=== PATIENT | female | born 1950 | race Caucasian/White ===

== ENCOUNTER → 2016-10-08 | Outpatient (REF) | payer MEDICARE, MEDICAID ==
[2016-10-08 18:34] LABS: BASO % 0.3 % (0.0-1.0); EOS % 0.6 % (0.0-3.0); LARGE UNSTAINED CELL # 0.1 K/mm3 (0.0-0.4); LARGE UNSTAINED CELL % 1.9 % (0.0-4.0); LYMPH # 1.5 K/mm3 (1.5-4.5); LYMPH % 33.6 % (24.0-44.0); MEAN CORPUSCULAR HEMOGLOBIN 29.8 pg (27.0-33.0); MEAN CORPUSCULAR HGB CONC 33.1 g/dl (32.0-36.5); MONO # 0.4 K/mm3 (0.0-0.8); MONO % 8.1 % (0.0-5.0); NEUTROPHILS # 2.4 K/mm3 (1.8-7.7); NEUTROPHILS % 55.4 % (36.0-66.0); PLATELET COUNT, AUTOMATED 156 k/mm3 (150-450); RED CELL DISTRIBUTION WIDTH 11.6 % (11.5-14.5); WHITE BLOOD COUNT 4.3 K/mm3 (4.0-10.0)
[2016-10-08 19:49] LABS: ALBUMIN 3.8 GM/DL (3.2-5.2); ALBUMIN/GLOBULIN RATIO 1.06 (1.00-1.93); ALKALINE PHOSPHATASE 82 U/L (45-117); ALT/SGPT 41 U/L (12-78); ANION GAP 9 MEQ/L (8-16); AST/SGOT 39 U/L (15-37); BILIRUBIN,DIRECT 0.1 MG/DL (0.0-0.2); BILIRUBIN,TOTAL 0.8 MG/DL (0.2-1.0); BLOOD UREA NITROGEN 13 MG/DL (7-18); CARBON DIOXIDE LEVEL 30 MEQ/L (21-32); CHLORIDE LEVEL 102 MEQ/L (98-107); CHOLESTEROL LEVEL 200 MG/DL (<200); GLOMERULAR FILTRATION RATE > 60.0 (>45); GLUCOSE, FASTING 84 MG/DL (80-110); PHOSPHORUS LEVEL 2.5 MG/DL (2.5-4.9); POTASSIUM SERUM 3.8 MEQ/L (3.5-5.1); SODIUM LEVEL 141 MEQ/L (136-145); TOTAL PROTEIN 7.4 GM/DL (6.4-8.2); TRIGLYCERIDES LEVEL 228 MG/DL (<150)
== END ==
LOC: M SFHCLERA 14:17
PROVIDERS: ATTEND Family Medicine
DX: Z51.81 Encounter for therapeutic drug level monitoring (principal); Z13.220 Encounter for screening for lipoid disorders; Z79.82 Long term (current) use of aspirin; Z79.899 Other long term (current) drug therapy; R41.82 Altered mental status, unspecified; R42 Dizziness and giddiness; F43.9 Reaction to severe stress, unspecified; Z23 Encounter for immunization
CPT/HCPCS: 80061; 80069; 80076; 82043; 85025; 86580; 90662; 93005; G0008; G0463; G0472

== ENCOUNTER → 2016-10-09 | Outpatient (CLI) | payer MEDICARE, MEDICAID ==
--- NOTE | 2016-10-09 15:11 | REP ---
CAROTID ULTRASOUND: Real-time ultrasound evaluation and duplex Doppler interrogation of the extracranial carotid vasculature is performed. There is mild plaquing and narrowing in both carotid bulbs extending into the internal and external carotid arteries. Luminal narrowing is less than 50%. There is no evidence of hemodynamically significant stenosis of either internal carotid artery. Normal flow velocities are seen. The vertebral arteries demonstrate normal direction of flow. RIGHT LEFT Peak systolic velocity ICA 63.8 cm/s 56.3 cm/s End diastolic velocity ICA 29.1 cm/s 22 cm/s Peak systolic velocity CCA 73.2 cm/s 96 cm/s Peak systolic velocity ECA 103.6 cm/s 83.4 cm/s ICA/CCA ratio 0.87 0.59 IMPRESSION: Bilateral luminal narrowing of the internal carotid arteries less than 50%. No evidence of hemodynamically significant stenosis. Incidental note is made of subcentimeter nodules in both lobes of the thyroid. Signed by David Tanner MD 10/09/2016 03:03 P
== END ==
LOC: M RAD 13:48
PROVIDERS: ATTEND Family Medicine
DX: R42 Dizziness and giddiness (principal); E04.1 Nontoxic single thyroid nodule

== ENCOUNTER → 2016-11-26 | Outpatient (REF) | payer MEDICARE, MEDICAID | LOC: M LAB REF 16:53 | PROVIDERS: ATTEND Obstetrics & Gynecology | DX: N32.81 Overactive bladder (principal); N39.46 Mixed incontinence ==

== ENCOUNTER → 2017-01-03 | Outpatient (REF) | payer MEDICARE, MEDICAID ==
[2017-01-03 17:34] LABS: MEAN CORPUSCULAR HEMOGLOBIN 32.2 pg (27.0-33.0); MEAN CORPUSCULAR HGB CONC 34.8 g/dl (32.0-36.5); MEAN CORPUSCULAR VOLUME 92.5 fl (80.0-96.0); RED CELL DISTRIBUTION WIDTH 12.6 % (11.5-14.5); WHITE BLOOD COUNT 5.5 K/mm3 (4.0-10.0)
[2017-01-03 17:59] LABS: ALBUMIN 3.7 GM/DL (3.2-5.2); ALBUMIN/GLOBULIN RATIO 1.12 (1.00-1.93); ALKALINE PHOSPHATASE 78 U/L (45-117); ALT/SGPT 19 U/L (12-78); ANION GAP 6 MEQ/L (8-16); AST/SGOT 16 U/L (15-37); BILIRUBIN,TOTAL 0.5 MG/DL (0.2-1.0); BLOOD UREA NITROGEN 15 MG/DL (7-18); CALCIUM LEVEL 9.1 MG/DL (8.8-10.2); CARBON DIOXIDE LEVEL 32 MEQ/L (21-32); CHLORIDE LEVEL 103 MEQ/L (98-107); CHOLESTEROL LEVEL 192 MG/DL (<200); CREATININE FOR GFR 0.77 MG/DL (0.55-1.02); GLOMERULAR FILTRATION RATE > 60.0 (>45); GLUCOSE, FASTING 96 MG/DL (80-110); POTASSIUM SERUM 4.3 MEQ/L (3.5-5.1); SODIUM LEVEL 141 MEQ/L (136-145); TRIGLYCERIDES LEVEL 201 MG/DL (<150)
== END ==
LOC: M SFHCLERA 11:24
PROVIDERS: ATTEND Family Medicine
DX: I10 Essential (primary) hypertension (principal); E78.2 Mixed hyperlipidemia
CPT/HCPCS: 80053; 80061; 85027; G0463

== ENCOUNTER → 2017-01-30 | Outpatient (REF) | payer MEDICARE, MEDICAID | LOC: M LAB REF 16:38 | PROVIDERS: ATTEND Obstetrics & Gynecology | DX: N32.81 Overactive bladder (principal); N39.41 Urge incontinence ==

== ENCOUNTER 2017-05-30 12:32 | Outpatient (CLI) | payer MEDICARE, MEDICAID ==
[~2017-05-30] VITALS: Ht 149.9 cm; Wt 98.9 kg
[~2017-05-30 12:32] MED LIST: ALEV220T26 PO; ASPI1TAB PO; BENA25CA4 PO; DETR4CAP PO; DULE200A IN; GLUC1CAP10 PO; LORA10TA2 PO; LOSA100T36 PO; MYRB25TA PO; OMEG12002 PO; OMEP20CA3 PO; PROAAER10 INH; SIMV10TA2 PO; STEL90IN SC; TURM500T PO; VITA100067 PO; [UNRECOGNIZED DRUG - CODE] EX
[2017-05-30] MEDS ORDERED: NS 1,000 ML IV ONE (13:00)
[2017-05-30] MEDS ORDERED: LIDOCAINE 2% INJ 100 MG/5 ML SDV (FOR ANES.) As Ordered ONE (13:58)
[2017-05-30] MEDS ORDERED: PROPOFOL 200 MG/20 ML VIAL As Ordered ONE ×2 (13:58→14:06)
--- NOTE | 2017-05-30 14:21 | ROOR ---
Patient Name: Nicole Cardona Procedure Date: 05/30/2017 1:56 PM Date of : 1950 Age: 67 Room: [facility] Gender: Female Note Status: Finalized Procedure: Colonoscopy Indications: Screening for colorectal malignant neoplasm Providers: Rich ZULETA MD Referring MD: Denise BARON MD Requesting Provider: Medicines: Monitored Anesthesia Care Complications: No immediate complications. Procedure: Pre-Anesthesia Assessment: - The heart rate, respiratory rate, oxygen saturations, blood pressure, adequacy of pulmonary ventilation, and response to care were monitored throughout the procedure. The Colonoscope was introduced through the anus and advanced to the cecum, identified by appendiceal orifice and ileocecal valve. The colonoscopy was performed without difficulty. The patient tolerated the procedure well. The quality of the bowel preparation was good. Findings: The perianal and digital rectal examinations were normal. A 3 mm polyp was found in the ascending colon. The polyp was sessile. The polyp was removed with a cold snare. Resection and retrieval were complete. Two sessile polyps were found in the descending colon. The polyps were 3 to 4 mm in size. These polyps were removed with a cold snare. Resection and retrieval were complete. Multiple medium-mouthed diverticula were found in the sigmoid colon. The exam was otherwise without abnormality. Impression: - One 3 mm polyp in the ascending colon, removed with a cold snare. Resected and retrieved. - Two 3 to 4 mm polyps in the descending colon, removed with a cold snare. Resected and retrieved. - Moderate diverticulosis in the sigmoid colon. - The examination was otherwise normal. Recommendation: - Telephone endoscopist for pathology results in 2 weeks. - If the pathology report reveals adenomatous tissue, then repeat the colonoscopy for surveillance in 3 years. - If the pathology report indicates hyperplastic polyp, then repeat colonoscopy for screening purposes in 10 years. Rich Zuleta MD Rich ZULETA MD 05/30/2017 2:21:38 PM This report has been signed electronically. Number of Addenda: 0 Note Initiated On: 05/30/2017 1:56 PM Estimated Blood Loss: Estimated blood loss: none.
[2017-05-30 14:46] VITALS: BP 129/69
== END 2017-05-30 15:18 | disposition home or self-care (01) ==
LOC: M OPP 12:32
PROVIDERS: ATTEND Internal Medicine Gastroenterology
DX: Z12.11 Encounter for screening for malignant neoplasm of colon (principal); D12.2 Benign neoplasm of ascending colon; D12.4 Benign neoplasm of descending colon; K57.30 Diverticulosis of large intestine without perforation or abscess without bleeding; I10 Essential (primary) hypertension; E78.5 Hyperlipidemia, unspecified; K21.9 Gastro-esophageal reflux disease without esophagitis; R12 Heartburn; F32.9 Major depressive disorder, single episode, unspecified; F41.9 Anxiety disorder, unspecified; M35.1 Other overlap syndromes; M19.90 Unspecified osteoarthritis, unspecified site; M54.9 Dorsalgia, unspecified; M25.60 Stiffness of unspecified joint, not elsewhere classified; L41.9 Parapsoriasis, unspecified; Z86.73 Personal history of transient ischemic attack (TIA), and cerebral infarction without residual deficits; E55.9 Vitamin D deficiency, unspecified; R32 Unspecified urinary incontinence; Z87.891 Personal history of nicotine dependence; Z88.8 Allergy status to other drugs, medicaments and biological substances; Z88.5 Allergy status to narcotic agent; Z88.3 Allergy status to other anti-infective agents; Z79.82 Long term (current) use of aspirin; Z79.899 Other long term (current) drug therapy

== ENCOUNTER → 2017-07-01 | Outpatient (REF) | payer MEDICARE, MEDICAID | LOC: M SFHCLERA 18:08 | PROVIDERS: ATTEND Physician Assistant | DX: Z11.59 Encounter for screening for other viral diseases (principal) | CPT/HCPCS: 86803; G0463 ==

== ENCOUNTER → 2017-07-04 | Outpatient (REF) | payer MEDICARE, MEDICAID ==
[2017-07-04 12:52] LABS: FOLATE 21.7 NG/ML
[2017-07-04 13:50] LABS: FREE T4 1.05 NG/DL (0.76-1.46)
== END ==
LOC: M SFHCLERA 09:47
PROVIDERS: ATTEND Family Medicine
DX: E66.01 Morbid (severe) obesity due to excess calories (principal); Z68.41 Body mass index [BMI] 40.0-44.9, adult; L40.9 Psoriasis, unspecified; E78.2 Mixed hyperlipidemia; N32.81 Overactive bladder; F32.9 Major depressive disorder, single episode, unspecified; Z23 Encounter for immunization; Z79.82 Long term (current) use of aspirin; Z79.899 Other long term (current) drug therapy
CPT/HCPCS: 82306; 82607; 82746; 84439; 84443; 90732; G0009

== ENCOUNTER → 2017-10-01 | Outpatient (CLI) | payer MEDICARE, MEDICAID ==
[2017-10-01 17:40] LABS: BASO % 0.4 % (0.0-1.0); EOS # 0.1 10^3/uL (0.0-0.50); EOS % 1.3 % (0.0-3.0); HEMATOCRIT 42.7 % (36.0-47.0); HEMOGLOBIN 14.2 g/dl (12.0-16.0); IMMATURE GRANULOCYTE % 0.2 % (0-0); LYMPH % 37.3 % (24.0-44.0); MEAN CORPUSCULAR HEMOGLOBIN 29.6 pg (27.0-33.0); MEAN CORPUSCULAR HGB CONC 33.3 g/dl (32.0-36.5); MEAN CORPUSCULAR VOLUME 89.1 fl (80.0-96.0); MONO # 0.5 10^3/uL (0.0-0.8); MONO % 9.8 % (0.0-5.0); NEUTROPHILS # 2.7 10^3/uL (1.8-7.7); PLATELET COUNT, AUTOMATED 193 10^3/uL (150-450); RED BLOOD COUNT 4.79 10^6/uL (4.00-5.40); WHITE BLOOD COUNT 5.3 10^3/uL (4.0-10.0)
[2017-10-01 17:47] LABS: ALKALINE PHOSPHATASE 87 U/L (45-117); ALT/SGPT 21 U/L (12-78); ANION GAP 9 MEQ/L (8-16); AST/SGOT 16 U/L (7-37); BILIRUBIN,DIRECT 0.1 MG/DL (0.0-0.2); BILIRUBIN,TOTAL 0.7 MG/DL (0.2-1.0); BLOOD UREA NITROGEN 22 MG/DL (7-18); CALCIUM LEVEL 9.7 MG/DL (8.8-10.2); CARBON DIOXIDE LEVEL 32 MEQ/L (21-32); CHLORIDE LEVEL 98 MEQ/L (98-107); CREATININE FOR GFR 0.84 MG/DL (0.55-1.02); GLOMERULAR FILTRATION RATE > 60.0 (>45); GLUCOSE, FASTING 96 MG/DL (70-100); PHOSPHORUS LEVEL 3.2 MG/DL (2.5-4.9); POTASSIUM SERUM 3.4 MEQ/L (3.5-5.1); SODIUM LEVEL 139 MEQ/L (136-145)
== END ==
LOC: M LRY 13:04
DX: Z51.81 Encounter for therapeutic drug level monitoring (principal); Z79.899 Other long term (current) drug therapy; L40.0 Psoriasis vulgaris
CPT/HCPCS: 80069

== ENCOUNTER → 2017-10-25 | Outpatient (CLI) | payer MEDICARE, MEDICAID ==
[2017-10-27 10:07] LABS: QUANTIFERON GOLD TB Negative (Negative); TB Test (QFT) Antigen 0.02 IU/mL (.); TB Test (QFT) Mitogen 5.89 IU/mL (.); TB Test (QFT) Nil 0.02 IU/mL (.)
== END ==
LOC: M LRY 12:42
DX: Z51.81 Encounter for therapeutic drug level monitoring (principal); L40.0 Psoriasis vulgaris; Z79.899 Other long term (current) drug therapy
CPT/HCPCS: 36415

== ENCOUNTER → 2018-07-03 | Outpatient (CLI) | payer MEDICARE, MEDICAID | LOC: M LRY 12:03 | DX: L40.9 Psoriasis, unspecified (principal); M25.761 Osteophyte, right knee; M25.762 Osteophyte, left knee; M17.0 Bilateral primary osteoarthritis of knee | CPT/HCPCS: 73565; 90682 ==

== ENCOUNTER → 2018-10-01 | Outpatient (CLI) | payer MEDICARE, MEDICAID ==
[~2018-10-01] MED LIST changes: +LORA-243 PO; -LORA10TA2 PO; -LOSA100T36 PO; +LOSA100T50 PO
--- NOTE | 2018-10-01 14:52 | REP ---
Chest two views HISTORY: Psoriasis medication monitoring Comparison: 10/01/2017 The lungs are clear. The heart is normal in size. The pulmonary vasculature is normal in appearance. The bony structure is intact. IMPRESSION: No acute disease. Electronically Signed by Eleazar Weinberg MD 10/01/2018 02:44 P
== END ==
LOC: M LRY 13:56
PROVIDERS: ATTEND Nurse Practitioner Family
DX: L40.0 Psoriasis vulgaris (principal); Z51.81 Encounter for therapeutic drug level monitoring; Z79.899 Other long term (current) drug therapy

== ENCOUNTER → 2018-11-26 | Outpatient (REF) | payer MEDICARE, MEDICAID ==
[~2018-11-26] MED LIST changes: -ASPI1TAB PO; +ASPI81TA26 PO
[2018-11-26 13:25] LABS: C REACTIVE PROTEIN QUANTITATIV 1.23 MG/DL (0.00-0.30); RHEUMATOID FACTOR QUANT < 10.0 IU/ML (<15.0)
== END ==
LOC: M SFHCPLAZ 10:21
PROVIDERS: ATTEND Internal Medicine Rheumatology
DX: M25.569 Pain in unspecified knee (principal)
CPT/HCPCS: 36415; 85652; 86140; 86200; 86431; G0463

== ENCOUNTER → 2019-01-02 | Outpatient (REF) | payer MEDICARE, MEDICAID ==
[2019-01-02 12:08] LABS: ALBUMIN 3.8 GM/DL (3.2-5.2); ALT/SGPT 19 U/L (12-78); BILIRUBIN,TOTAL 0.3 MG/DL (0.2-1.0); BLOOD UREA NITROGEN 19 MG/DL (7-18); CARBON DIOXIDE LEVEL 32 MEQ/L (21-32); CHLORIDE LEVEL 99 MEQ/L (98-107); CHOLESTEROL LEVEL 210 MG/DL (<200); CHOLESTEROL RISK RATIO 4.883 (<5); CREATININE FOR GFR 0.75 MG/DL (0.55-1.30); GLOMERULAR FILTRATION RATE > 60.0 (>45); GLUCOSE, FASTING 97 MG/DL (70-100); HDL CHOLESTEROL 43 MG/DL (>40); LDL CHOLESTEROL 97.4 MG/DL (<100); NON-HDL-C 167 MG/DL; POTASSIUM SERUM 3.7 MEQ/L (3.5-5.1); SODIUM LEVEL 138 MEQ/L (136-145); TOTAL PROTEIN 7.1 GM/DL (6.4-8.2); TRIGLYCERIDES LEVEL 348 MG/DL (<150)
== END ==
LOC: M SFHCLERA 09:11
PROVIDERS: ATTEND Family Medicine
DX: Z00.00 Encounter for general adult medical examination without abnormal findings (principal); E78.2 Mixed hyperlipidemia

== ENCOUNTER → 2019-06-22 | Outpatient (REF) | payer MEDICARE, MEDICAID ==
[~2019-06-22] MED LIST changes: -OMEP20CA3 PO; +OMEP20CA4 PO
[2019-06-22 12:35] LABS: CHOLESTEROL RISK RATIO 4.428 (<5)
== END ==
LOC: M SFHCLERA 09:26
PROVIDERS: ATTEND Family Medicine
DX: E78.5 Hyperlipidemia, unspecified (principal)

== ENCOUNTER → 2019-06-22 | Outpatient (CLI) | payer MEDICARE, MEDICAID ==
[2019-06-22 12:17] LABS: BASO % 0.3 % (0.0-1.0); HEMATOCRIT 41.6 % (36.0-47.0); LYMPH # 1.7 10^3/uL (1.5-5.0); LYMPH % 42.1 % (24.0-44.0); MEAN CORPUSCULAR HEMOGLOBIN 30.3 pg (27.0-33.0); MEAN CORPUSCULAR HGB CONC 33.7 g/dl (32.0-36.5); MONO # 0.5 10^3/uL (0.0-0.8); MONO % 13.3 % (0.0-5.0); NEUTROPHILS # 1.7 10^3/uL (1.5-8.5); NEUTROPHILS % 42.8 % (36.0-66.0); PLATELET COUNT, AUTOMATED 153 10^3/uL (150-450); RED BLOOD COUNT 4.62 10^6/uL (4.00-5.40)
[2019-06-22 13:44] LABS: ALBUMIN 3.7 GM/DL (3.2-5.2); ALT/SGPT 26 U/L (12-78); BILIRUBIN,DIRECT 0.1 MG/DL (0.0-0.2); BILIRUBIN,TOTAL 0.7 MG/DL (0.2-1.0); BLOOD UREA NITROGEN 16 MG/DL (7-18); CALCIUM LEVEL 9.8 MG/DL (8.8-10.2); CARBON DIOXIDE LEVEL 32 MEQ/L (21-32); CHLORIDE LEVEL 97 MEQ/L (98-107); CREATININE FOR GFR 0.91 MG/DL (0.55-1.30); GLOMERULAR FILTRATION RATE > 60.0 (>45); GLUCOSE, FASTING 102 MG/DL (70-100); PHOSPHORUS LEVEL 2.8 MG/DL (2.5-4.9); POTASSIUM SERUM 2.9 MEQ/L (3.5-5.1); SODIUM LEVEL 136 MEQ/L (136-145); TOTAL PROTEIN 7.4 GM/DL (6.4-8.2)
--- NOTE | 2019-06-22 14:24 | REP ---
CHEST X-RAY: Two views. HISTORY: Monitoring medication for psoriasis. Comparison chest x-ray October 01, 2018. FINDINGS: The lungs are well inflated and clear. The pleural angles are sharp. Heart size is normal. The thoracic aorta is slightly calcific and tortuous as before. Pulmonary vasculature is not increased. No significant bony abnormality. IMPRESSION: No active disease. Electronically Signed by Valdez Lares MD 06/22/2019 06:34 P
== END ==
LOC: M LRY 09:37
PROVIDERS: ATTEND Nurse Practitioner Family
DX: L40.0 Psoriasis vulgaris (principal); Z79.899 Other long term (current) drug therapy; Z51.81 Encounter for therapeutic drug level monitoring; E78.5 Hyperlipidemia, unspecified

== ENCOUNTER → 2019-06-23 | Outpatient (REF) | payer MEDICARE, MEDICAID | LOC: M SFHCLERA 10:26 | PROVIDERS: ATTEND Family Medicine | DX: I10 Essential (primary) hypertension (principal) ==

== ENCOUNTER → 2019-06-25 | Outpatient (REF) | payer MEDICARE, MEDICAID | LOC: M SFHCLERA 16:20 | PROVIDERS: ATTEND Family Medicine | DX: I10 Essential (primary) hypertension (principal); Z23 Encounter for immunization | CPT/HCPCS: 10120; 84132; 90682; 90732; G0009; G0463 ==

== ENCOUNTER → 2019-07-02 | Outpatient (REF) | payer MEDICARE, MEDICAID | LOC: M SFHCLERA 10:59 | PROVIDERS: ATTEND Family Medicine | DX: E87.6 Hypokalemia (principal); L08.9 Local infection of the skin and subcutaneous tissue, unspecified | CPT/HCPCS: 84132; 84133; 87070; 87077; 87101; 87186; G0463 ==

== ENCOUNTER → 2021-01-11 | Outpatient (CLI) | payer MEDICARE, MEDICAID ==
[~2021-01-11] MED LIST changes: +OMEP1CAP73 PO; -OMEP20CA4 PO; -SIMV10TA2 PO; +SIMV10TA21 PO
[2021-01-11 16:58] LABS: ALBUMIN 3.7 GM/DL (3.2-5.2); ALT/SGPT 20 U/L (12-78); BILIRUBIN,TOTAL 0.5 MG/DL (0.2-1.0); BLOOD UREA NITROGEN 16 MG/DL (7-18); CALCIUM LEVEL 9.2 MG/DL (8.8-10.2); CARBON DIOXIDE LEVEL 29 MEQ/L (21-32); CHLORIDE LEVEL 105 MEQ/L (98-107); CHOLESTEROL LEVEL 196 MG/DL (<200); CREATININE FOR GFR 0.82 MG/DL (0.55-1.30); GLOMERULAR FILTRATION RATE > 60.0 (>39); GLUCOSE, FASTING 94 MG/DL (70-100); HDL CHOLESTEROL 50 MG/DL (>40); LDL CHOLESTEROL 104 MG/DL (<100); NON-HDL-C 146 MG/DL; POTASSIUM SERUM 4.2 MEQ/L (3.5-5.1); SODIUM LEVEL 138 MEQ/L (136-145); TOTAL PROTEIN 7.1 GM/DL (6.4-8.2); TRIGLYCERIDES LEVEL 210 MG/DL (<150)
== END ==
LOC: M WUC 10:44
PROVIDERS: ATTEND Family Medicine
DX: E78.2 Mixed hyperlipidemia (principal); I10 Essential (primary) hypertension; L40.0 Psoriasis vulgaris; Z51.81 Encounter for therapeutic drug level monitoring; Z79.899 Other long term (current) drug therapy

== ENCOUNTER → 2021-01-11 | Outpatient (CLI) | payer MEDICARE, MEDICAID ==
--- NOTE | 2021-01-11 11:46 | REP ---
INDICATION: FOLLOW UP COMPARISON: 06/22/2019. TECHNIQUE: PA/Lateral FINDINGS: Lungs: Clear, no infiltrate. Heart: Normal in size. Mediastinum: There is mild calcification of the thoracic aorta. The mediastinal silhouette is unchanged. Pleural angles: Unremarkable.. Bones and soft tissues: There are degenerative changes of the spine without compression deformity. IMPRESSION: No acute pulmonary disease. <Electronically signed by David Tanner > 01/11/21 [id number]
== END ==
LOC: M WUC 10:52
PROVIDERS: ATTEND Nurse Practitioner Family
DX: L40.0 Psoriasis vulgaris (principal); Z51.81 Encounter for therapeutic drug level monitoring; Z79.899 Other long term (current) drug therapy

== ENCOUNTER → 2021-01-25 | Outpatient (CLI) | payer MEDICARE, MEDICAID ==
--- NOTE | 2021-01-25 11:23 | REPMRS ---
Patient History The patient states she had a clinical breast exam in January 2021. No known family history of cancer. Benign radio exam breast specimen of the left breast, August 30, 2015. Benign stereotatic loc for ea lesion of the left breast, August 30, 2015. Benign cyst aspiration of the left breast, May 17, 2010. Benign excisional biopsy of the right breast, November 05, 2002. Tomosynthesis is performed. Volpara breast density is b . Tyrer-Cuzick lifetime risk of breast cancer 4.1%. No breast complaints today Patient signed the MRS sheet 1st covid vaccine 11/11/20-left arm-Moderna 2nd covid vaccine 12/13/20-left arm Priors on PACS Patient Identification Verified Digital Woman Screen Mammo: January 25, 2021 - Exam #: [id number] Bilateral CC and MLO view(s) were taken. Technologist: Alexandria Giles Technologist Prior study comparison: May 21, 2016, left breast digital mammo diagnostic unilateral, performed at [facility]. December 06, 2015, digital woman screen mammo performed at [facility]. FINDINGS: The breast tissue is heterogeneously dense. This may lower the sensitivity of mammography. There has been no change in the appearance of the mammogram from the prior studies. There is a moderate amount of residual fibroglandular tissue which is fairly symmetric. There is no interval development of dominant mass, areas of architectural distortion, or clustered microcalcification typical of malignancy. Assessment: BI-RADS/ACR category 1 mammogram. Negative Mammogram. Recommendation Routine screening mammogram in 1 year (for women over age 40). This mammogram was interpreted with the aid of an FDA-approved computer-aided dectection system. Electronically Signed By: David Tanner MD 01/25/21 112
== END ==
LOC: M WHC 09:46
PROVIDERS: ATTEND Family Medicine
DX: Z12.31 Encounter for screening mammogram for malignant neoplasm of breast (principal)

== ENCOUNTER 2021-04-25 12:11 | Emergency (ER) | payer MEDICARE, MEDICAID ==
[~2021-04-25] VITALS: Ht 147.3 cm; Wt 93.6 kg
[2021-04-25 12:11] VITALS: BP 136/63
--- NOTE | 2021-04-25 13:33 | REP ---
INDICATION: injury, include left pinky finger COMPARISON: None. TECHNIQUE: Four views left hand. 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 There is moderate narrowing between the scaphoid and trapezium. There is severe narrowing between the trapezium and base of 1st metacarpal with associated spurring, subchondral sclerosis and cystic change. There is moderate diffuse narrowing of the 2nd through 5th distal interphalangeal joints, as well as 3rd and 4th proximal interphalangeal joints, with mild associated spurring. IMPRESSION: No fracture or dislocation. Degenerative changes as above. <Electronically signed by David Tanner > 04/25/21 [id number]
== END 2021-04-25 14:39 | disposition home or self-care (01) ==
LOC: M ED 12:11
DX: S63.637A Sprain of interphalangeal joint of left little finger, initial encounter (principal); X50.3XXA Overexertion from repetitive movements, initial encounter; Y92.9 Unspecified place or not applicable; Y93.H2 Activity, gardening and landscaping; Y99.9 Unspecified external cause status; E78.5 Hyperlipidemia, unspecified; I10 Essential (primary) hypertension; Z79.51 Long term (current) use of inhaled steroids; Z79.82 Long term (current) use of aspirin; Z79.899 Other long term (current) drug therapy; Z87.891 Personal history of nicotine dependence; Z88.6 Allergy status to analgesic agent; Z88.8 Allergy status to other drugs, medicaments and biological substances

== ENCOUNTER → 2021-06-26 | Outpatient (CLI) | payer MEDICARE, MEDICAID ==
[~2021-06-26] MED LIST changes: +BREO1INH3 INH; +COSE1INJ SC; +D31000TA2 PO; +NAPR220C14 PO; +TURM500C3 PO
== END ==
LOC: M LABSMTC 11:27
PROVIDERS: ATTEND Anesthesiology
DX: Z01.812 Encounter for preprocedural laboratory examination (principal); Z20.822 Contact with and (suspected) exposure to COVID-19

== ENCOUNTER → 2022-02-07 | Outpatient (CLI) | payer OTHER, MEDICAID ==
[~2022-02-07] MED LIST changes: -D31000TA2 PO; +LOSA100T45 PO; -LOSA100T50 PO; +VITA100093 PO
== END ==
LOC: M PLAIMG 13:47
PROVIDERS: ATTEND Physician Assistant
DX: J32.8 Other chronic sinusitis (principal); J30.89 Other allergic rhinitis

== ENCOUNTER → 2022-02-07 | Outpatient (CLI) | payer OTHER, MEDICAID ==
[2022-02-07 15:38] LABS: BASO % 0.2 % (0.0-1.0); EOS % 0.4 % (0.0-3.0); HEMOGLOBIN 13.3 g/dl (12.0-15.5); LYMPH # 1.3 10^3/uL (1.5-5.0); LYMPH % 28.2 % (24.0-44.0); MEAN CORPUSCULAR HGB CONC 32.4 g/dl (32.0-36.5); MEAN CORPUSCULAR VOLUME 89.5 fl (80.0-96.0); MONO # 0.9 10^3/uL (0.0-0.8); MONO % 19.7 % (2.0-8.0); NEUTROPHILS # 2.4 10^3/uL (1.5-8.5); NEUTROPHILS % 50.2 % (36.0-66.0); PLATELET COUNT, AUTOMATED 104 10^3/uL (150-450); RED BLOOD COUNT 4.58 10^6/uL (4.00-5.40); WHITE BLOOD COUNT 4.7 10^3/uL (4.0-10.0)
[2022-02-07 16:11] LABS: ALBUMIN 3.9 GM/DL (3.2-5.2); ALT/SGPT 29 U/L (12-78); BILIRUBIN,TOTAL 0.5 MG/DL (0.2-1.0); BLOOD UREA NITROGEN 21 MG/DL (7-18); CALCIUM LEVEL 9.9 MG/DL (8.8-10.2); CARBON DIOXIDE LEVEL 32 MEQ/L (21-32); CHLORIDE LEVEL 107 MEQ/L (98-107); GLOMERULAR FILTRATION RATE > 60.0 (>39); GLUCOSE, FASTING 88 MG/DL (70-100); SODIUM LEVEL 144 MEQ/L (136-145); THYROID STIMULATING HORMONE 0.739 uIU/ML (0.358-3.740); TOTAL PROTEIN 7.4 GM/DL (6.4-8.2)
[2022-02-07 16:12] LABS: TOTAL 25(OH) VITAMIN D 36.3 NG/ML (30.0-100.0); VITAMIN B12 LEVEL 570 PG/ML (247-911)
== END ==
LOC: M PLAIMG 13:51
PROVIDERS: ATTEND Family Medicine
DX: R05.3 Chronic cough (principal); R53.83 Other fatigue; Z79.899 Other long term (current) drug therapy

== ENCOUNTER → 2022-04-12 | Outpatient (CLI) | payer OTHER, MEDICAID ==
[2022-04-12 11:20] LABS: BASO % 0.5 % (0.0-1.0); EOS # 0.1 10^3/uL (0.0-0.5); EOS % 1.6 % (0.0-3.0); HEMOGLOBIN 13.1 g/dl (12.0-15.5); LYMPH # 1.6 10^3/uL (1.5-5.0); LYMPH % 42.9 % (24.0-44.0); MEAN CORPUSCULAR HEMOGLOBIN 28.5 pg (27.0-33.0); MEAN CORPUSCULAR VOLUME 89.1 fl (80.0-96.0); MONO # 0.6 10^3/uL (0.0-0.8); MONO % 15.8 % (2.0-8.0); NEUTROPHILS # 1.4 10^3/uL (1.5-8.5); NEUTROPHILS % 38.7 % (36.0-66.0); PLATELET COUNT, AUTOMATED 112 10^3/uL (150-450); WHITE BLOOD COUNT 3.7 10^3/uL (4.0-10.0)
[2022-04-12 12:08] LABS: ALBUMIN 3.7 GM/DL (3.2-5.2); ALT/SGPT 18 U/L (12-78); BILIRUBIN,TOTAL 0.4 MG/DL (0.2-1.0); BLOOD UREA NITROGEN 19 MG/DL (7-18); CALCIUM LEVEL 9.4 MG/DL (8.8-10.2); CARBON DIOXIDE LEVEL 29 MEQ/L (21-32); CHLORIDE LEVEL 105 MEQ/L (98-107); CREATININE FOR GFR 0.83 MG/DL (0.55-1.30); GLOMERULAR FILTRATION RATE > 60.0 (>39); GLUCOSE, FASTING 104 MG/DL (70-100); POTASSIUM SERUM 4.3 MEQ/L (3.5-5.1); SODIUM LEVEL 139 MEQ/L (136-145); TOTAL PROTEIN 7.5 GM/DL (6.4-8.2)
[2022-04-12 13:16] LABS: HEPATITIS C VIRUS ABY INDEX < 0.0 INDEX (<0.8)
[2022-04-12 13:18] LABS: HIV 1&2 SCREEN CENTAUR NEGATIVE (NEGATIVE)
[2022-04-15 16:12] LABS: HBV HBV DNA not detected IU/mL (.)
== END ==
LOC: M PLALAB 08:36
PROVIDERS: ATTEND Nurse Practitioner Family
DX: L40.0 Psoriasis vulgaris (principal); D69.6 Thrombocytopenia, unspecified

== ENCOUNTER → 2022-04-12 | Outpatient (CLI) | payer OTHER, MEDICAID ==
[2022-04-12 11:22] LABS: BASO % 0.3 % (0.0-1.0); EOS # 0.1 10^3/uL (0.0-0.5); EOS % 1.9 % (0.0-3.0); HEMATOCRIT 40.1 % (36.0-47.0); HEMOGLOBIN 12.9 g/dl (12.0-15.5); LYMPH # 1.6 10^3/uL (1.5-5.0); LYMPH % 43.2 % (24.0-44.0); MEAN CORPUSCULAR HGB CONC 32.2 g/dl (32.0-36.5); MEAN CORPUSCULAR VOLUME 90.1 fl (80.0-96.0); MONO # 0.6 10^3/uL (0.0-0.8); MONO % 15.5 % (2.0-8.0); NEUTROPHILS # 1.5 10^3/uL (1.5-8.5); NEUTROPHILS % 38.6 % (36.0-66.0); PLATELET COUNT, AUTOMATED 112 10^3/uL (150-450); RED BLOOD COUNT 4.45 10^6/uL (4.00-5.40); WHITE BLOOD COUNT 3.8 10^3/uL (4.0-10.0)
== END ==
LOC: M PLALAB 08:39
PROVIDERS: ATTEND Family Medicine
DX: D69.6 Thrombocytopenia, unspecified (principal)

== ENCOUNTER → 2022-05-11 | Outpatient (CLI) | payer OTHER, MEDICAID ==
[~2022-05-11] MED LIST changes: -DULE200A IN; +MOME13HF7 IN
== END ==
LOC: M WHC 07:53
PROVIDERS: ATTEND Family Medicine
DX: Z12.31 Encounter for screening mammogram for malignant neoplasm of breast (principal)

== ENCOUNTER → 2022-05-11 | Outpatient (CLI) | payer OTHER, MEDICAID ==
[2022-05-11 10:38] LABS: HEMATOCRIT 42.6 % (36.0-47.0); HEMOGLOBIN 13.6 g/dl (12.0-15.5); MEAN CORPUSCULAR HEMOGLOBIN 28.8 pg (27.0-33.0); MEAN CORPUSCULAR HGB CONC 31.9 g/dl (32.0-36.5); MEAN CORPUSCULAR VOLUME 90.1 fl (80.0-96.0); PLATELET COUNT, AUTOMATED 118 10^3/uL (150-450); RED BLOOD COUNT 4.73 10^6/uL (4.00-5.40)
[2022-05-11 10:50] LABS: INR 0.94
[2022-05-11 12:34] LABS: ERYTHROCYTE SEDIMENTATION RATE 23 mm/hr (0-30)
== END ==
LOC: M PLALAB 08:48
PROVIDERS: ATTEND Family Medicine
DX: D69.6 Thrombocytopenia, unspecified (principal); D72.829 Elevated white blood cell count, unspecified

== ENCOUNTER → 2022-06-21 | Outpatient (CLI) | payer OTHER, MEDICAID ==
[~2022-06-21] MED LIST changes: +ALBU8.5H INH; +CITA20TA6 PO; +HYDR-643 PO; +TALT80IN7 SC; +TURM500C PO
== END ==
LOC: M LABSMTC 11:32
PROVIDERS: ATTEND Anesthesiology
DX: Z01.812 Encounter for preprocedural laboratory examination (principal); Z20.822 Contact with and (suspected) exposure to COVID-19

== ENCOUNTER 2022-06-26 07:08 | Day surgery (SDC) | payer OTHER, MEDICAID ==
[~2022-06-26] VITALS: Ht 152.4 cm; Wt 96.6 kg
[~2022-06-26 07:08] MED LIST changes: +NS 1,000 ML IV ONE
[2022-06-26] MEDS ORDERED: propofoL 200 MG/20 ML VIAL As Ordered ONE (07:50)
[2022-06-26] MEDS ORDERED: LIDOCAINE 2% 100MG/5ML SDV (FOR ANES.) As Ordered ONE (07:50)
[2022-06-26] MEDS ORDERED: fentaNYL 100 MCG/2 ML INJECTION As Ordered ONE (08:39)
[2022-06-26 09:40] VITALS: BP 129/59
== END 2022-06-26 09:52 | disposition home or self-care (01) ==
LOC: M OPP 07:08
PROVIDERS: ATTEND Surgery
DX: Z12.11 Encounter for screening for malignant neoplasm of colon (principal); Z86.010 Personal history of colon polyps; K57.30 Diverticulosis of large intestine without perforation or abscess without bleeding; K64.1 Second degree hemorrhoids; K22.89 Other specified disease of esophagus; K31.7 Polyp of stomach and duodenum; K29.70 Gastritis, unspecified, without bleeding; K30 Functional dyspepsia; Z87.891 Personal history of nicotine dependence; F32.9 Major depressive disorder, single episode, unspecified; F41.9 Anxiety disorder, unspecified; I10 Essential (primary) hypertension; E78.00 Pure hypercholesterolemia, unspecified; M05.79 Rheumatoid arthritis with rheumatoid factor of multiple sites without organ or systems involvement; R20.2 Paresthesia of skin; J44.9 Chronic obstructive pulmonary disease, unspecified; Z79.02 Long term (current) use of antithrombotics/antiplatelets; Z79.51 Long term (current) use of inhaled steroids; Z79.82 Long term (current) use of aspirin; Z79.1 Long term (current) use of non-steroidal anti-inflammatories (NSAID); Z79.899 Other long term (current) drug therapy; Z79.52 Long term (current) use of systemic steroids; Z88.3 Allergy status to other anti-infective agents; Z88.5 Allergy status to narcotic agent; Z88.6 Allergy status to analgesic agent; Z88.8 Allergy status to other drugs, medicaments and biological substances
CPT/HCPCS: 43239; 88305; G0105; J3010

== ENCOUNTER → 2022-07-24 | Outpatient (CLI) | payer MEDICARE, MEDICAID ==
[~2022-07-24] MED LIST changes: +LIDOCAINE 1% MDV 20ML VIAL As Ordered ONE; -NS 1,000 ML IV ONE
[2022-07-24 08:31] LABS: BASO % 0.2 % (0.0-1.0); EOS % 0.4 % (0.0-3.0); HEMATOCRIT 40.2 % (36.0-47.0); HEMOGLOBIN 13.1 g/dl (12.0-15.5); LYMPH # 1.5 10^3/uL (1.5-5.0); LYMPH % 31.8 % (24.0-44.0); MEAN CORPUSCULAR HEMOGLOBIN 28.7 pg (27.0-33.0); MEAN CORPUSCULAR HGB CONC 32.6 g/dl (32.0-36.5); MEAN CORPUSCULAR VOLUME 88.2 fl (80.0-96.0); MONO # 0.7 10^3/uL (0.0-0.8); MONO % 15.4 % (2.0-8.0); NEUTROPHILS # 2.4 10^3/uL (1.5-8.5); NEUTROPHILS % 51.5 % (36.0-66.0); PLATELET COUNT, AUTOMATED 107 10^3/uL (150-450); RED BLOOD COUNT 4.56 10^6/uL (4.00-5.40); WHITE BLOOD COUNT 4.6 10^3/uL (4.0-10.0)
[2022-07-24 09:05] VITALS: BP 122/57
== END ==
LOC: M IRPRO 07:08
PROVIDERS: ATTEND Internal Medicine Medical Oncology
DX: D69.6 Thrombocytopenia, unspecified (principal); D72.819 Decreased white blood cell count, unspecified

== ENCOUNTER → 2022-08-15 | Outpatient (CLI) | payer MEDICARE, MEDICAID ==
[~2022-08-15] MED LIST changes: -LIDOCAINE 1% MDV 20ML VIAL As Ordered ONE
== END ==
LOC: M RAD 09:10
PROVIDERS: ATTEND Internal Medicine Hematology & Oncology
DX: D69.6 Thrombocytopenia, unspecified (principal)

== ENCOUNTER → 2022-09-12 | Outpatient (REF) | payer OTHER, MEDICAID ==
[~2022-09-12] MED LIST changes: +CIPR500S PO
[2022-09-12 19:51] LABS: APPEARANCE, URINE MANUAL CLEAR (CLEAR); COLOR, URINE MANUAL YELLOW (YELLOW)
[2022-09-12 19:53] LABS: BILIRUBIN, URINE MANUAL NEGATIVE (NEGATIVE); BLOOD URINE MANUAL POSITIVE (NEGATIVE); GLUCOSE, URINE (UA) MANUAL NEGATIVE (NEGATIVE); KETONE, URINE MANUAL NEGATIVE (NEGATIVE); LEUKOCYTE ESTERASE, URINE MAN POSITIVE (NEGATIVE); NITRITE, URINE MANUAL POSITIVE (NEGATIVE); PROTEIN, URINE MANUAL NEGATIVE (NEGATIVE); UROBILINOGEN, URINE MANUAL NORMAL (NORMAL)
[2022-09-12 21:01] LABS: WBC, URINE 20-30 /hpf (0-3)
[2022-09-12 21:02] LABS: BACTERIA, URINE LARGE AMOUNT; HYALINE CAST, URINE NONE SEEN /lpf (0-1); SQUAMOUS EPITHELIAL CELL URINE MOD AMOUNT /hpf (SMALL AMT)
== END ==
LOC: M SMT 17:09
PROVIDERS: ATTEND Nurse Practitioner Women's Health
DX: R32 Unspecified urinary incontinence (principal)

== ENCOUNTER → 2022-11-23 | Outpatient (CLI) | payer OTHER, MEDICAID ==
[~2022-11-23] MED LIST changes: +CITA40TA7 PO; +COQ-100C5 PO; +CURC500C PO; +LEVOTAB10 PO; +LEXA1TAB PO; +MYRB50TA PO; +OMEGCAP4 PO; +RISA150P SC; +SPIR-10 PO; +TOLT4CAP3 PO; +ZINC50TA17 PO
[2022-11-23 15:50] LABS: HEMATOCRIT 42.2 % (36.0-47.0); HEMOGLOBIN 13.9 g/dl (12.0-15.5); MEAN CORPUSCULAR HEMOGLOBIN 29.2 pg (27.0-33.0); MEAN CORPUSCULAR HGB CONC 32.9 g/dl (32.0-36.5); MEAN CORPUSCULAR VOLUME 88.7 fl (80.0-96.0); PLATELET COUNT, AUTOMATED 121 10^3/uL (150-450); RED BLOOD COUNT 4.76 10^6/uL (4.00-5.40); WHITE BLOOD COUNT 3.8 10^3/uL (4.0-10.0)
[2022-11-23 16:10] LABS: PROTHROMBIN TIME 13.4 SECONDS (12.5-14.5)
[2022-11-23 16:53] LABS: ALBUMIN 4.1 G/DL (3.2-5.2); ALKALINE PHOSPHATASE 86 U/L (46-116); ALT/SGPT 18 U/L (7.0-40); AST/SGOT 20 U/L (<34); BILIRUBIN,TOTAL 0.5 MG/DL (0.3-1.2); BLOOD UREA NITROGEN 20 MG/DL (9-23); CALCIUM LEVEL 9.7 MG/DL (8.3-10.6); CARBON DIOXIDE LEVEL 29 MMOL/L (20-31); CHLORIDE LEVEL 102 MMOL/L (98-107); GLOMERULAR FILTRATION RATE > 60.0 (>39); GLUCOSE, FASTING 94 MG/DL (74-106); POTASSIUM SERUM 4.5 MMOL/L (3.5-5.1); SODIUM LEVEL 139 MMOL/L (136-145)
[2022-11-23 18:39] LABS: TOTAL PROTEIN 7.2 G/DL (5.7-8.2)
== END ==
LOC: M PLALAB 13:43
PROVIDERS: ATTEND Urology
DX: R32 Unspecified urinary incontinence (principal)

== ENCOUNTER → 2022-11-23 | Outpatient (CLI) | payer OTHER, MEDICAID | LOC: M EKG 14:16 | PROVIDERS: ATTEND Urology | DX: R32 Unspecified urinary incontinence (principal) ==

== ENCOUNTER → 2022-11-28 | Outpatient (CLI) | payer OTHER, MEDICAID | LOC: M LABSMTC 11:28 | PROVIDERS: ATTEND Anesthesiology | DX: Z20.822 Contact with and (suspected) exposure to COVID-19 (principal) ==

== ENCOUNTER 2022-12-03 06:50 | Day surgery (SDC) | payer OTHER, MEDICAID ==
[~2022-12-03] VITALS: Ht 149.9 cm; Wt 102.5 kg
[2022-12-03] MEDS ORDERED: LIDOCAINE 1% SDV 30ML VIAL As Ordered ONE (08:13)
[2022-12-03] MEDS ORDERED: LR 1,000 ML IV SCH (08:15)
[2022-12-03] MEDS ORDERED: ceFAZolin 2 GM/D5W 50 ML IV BAG As Ordered ONE (08:32)
[2022-12-03] MEDS ORDERED: MIDAZOLAM INJ 2MG/2ML VIAL As Ordered ONE (08:41)
[2022-12-03] MEDS ORDERED: propofoL 200 MG/20 ML VIAL As Ordered ONE (08:41)
[2022-12-03] MEDS ORDERED: ACETAMINOPHEN 1000MG 100ML IV BAG As Ordered ONE (08:41)
[2022-12-03] MEDS ORDERED: fentaNYL 100 MCG/2 ML INJECTION As Ordered ONE (08:41)
[2022-12-03] MEDS ORDERED: LIDOCAINE 2% 100MG/5ML SDV (FOR ANES.) As Ordered ONE (08:41)
[2022-12-03] MEDS ORDERED: CEPH500C PO (08:58)
[2022-12-03 10:00] VITALS: BP 167/78
== END 2022-12-03 10:00 | disposition home or self-care (01) ==
LOC: M SDC 06:50
PROVIDERS: ATTEND Urology
DX: N32.81 Overactive bladder (principal); L40.9 Psoriasis, unspecified; I10 Essential (primary) hypertension; E78.5 Hyperlipidemia, unspecified; K21.9 Gastro-esophageal reflux disease without esophagitis; F32.A Depression, unspecified; Z79.82 Long term (current) use of aspirin; Z79.899 Other long term (current) drug therapy; Z87.891 Personal history of nicotine dependence; Z86.73 Personal history of transient ischemic attack (TIA), and cerebral infarction without residual deficits; Z88.5 Allergy status to narcotic agent; Z88.8 Allergy status to other drugs, medicaments and biological substances
CPT/HCPCS: 64561; 76000; C1778; C1787; J0131; J0690; J2250; J3010

== ENCOUNTER 2022-12-24 06:00 | Day surgery (SDC) | payer OTHER, MEDICAID ==
[~2022-12-24] VITALS: Ht 152.4 cm; Wt 103.4 kg
[~2022-12-24 06:00] MED LIST changes: +CEPH500C PO; +ceFAZolin SOD 2 GM in IV 1 EA IV ONE
[2022-12-24] MEDS ORDERED: LR 1,000 ML IV SCH (06:35)
[2022-12-24] MEDS ORDERED: ONDANSETRON 4MG 2ML VIAL As Ordered ONE (06:54)
[2022-12-24] MEDS ORDERED: LIDOCAINE 2% 100MG/5ML SDV (FOR ANES.) As Ordered ONE (06:54)
[2022-12-24] MEDS ORDERED: propofoL 200 MG/20 ML VIAL As Ordered ONE (06:54)
[2022-12-24] MEDS ORDERED: KETOROLAC 60MG 2ML VIAL As Ordered ONE (06:54)
[2022-12-24] MEDS ORDERED: fentaNYL 100 MCG/2 ML INJECTION As Ordered ONE ×2 (06:59→08:11)
[2022-12-24] MEDS ORDERED: MIDAZOLAM INJ 2MG/2ML VIAL As Ordered ONE (06:59)
[2022-12-24] MEDS ORDERED: LIDOCAINE 1% SDV 30ML VIAL As Ordered ONE (07:09)
[2022-12-24] MEDS ORDERED: ceFAZolin 1GM VIAL As Ordered ONE (07:10)
[2022-12-24] MEDS ORDERED: ACETAMINOPHEN 1000MG 100ML IV BAG As Ordered ONE (07:40)
[2022-12-24 08:33] VITALS: BP 127/59
[2022-12-24] MEDS ORDERED: HYDR-3713 PO (08:36)
[2022-12-24] MEDS ORDERED: CEPH500C PO (08:36)
== END 2022-12-24 09:13 | disposition home or self-care (01) ==
LOC: M SDC 06:00
PROVIDERS: ATTEND Urology
DX: N32.81 Overactive bladder (principal); I10 Essential (primary) hypertension; E78.5 Hyperlipidemia, unspecified; J45.909 Unspecified asthma, uncomplicated; L40.9 Psoriasis, unspecified; G43.909 Migraine, unspecified, not intractable, without status migrainosus; K21.9 Gastro-esophageal reflux disease without esophagitis; Z86.73 Personal history of transient ischemic attack (TIA), and cerebral infarction without residual deficits; Z87.891 Personal history of nicotine dependence; Z91.041 Radiographic dye allergy status; Z88.5 Allergy status to narcotic agent; Z88.6 Allergy status to analgesic agent; Z88.8 Allergy status to other drugs, medicaments and biological substances
CPT/HCPCS: 64581; 64590; 76000; J0131; J0690; J1100; J1885; J2250; J2405; J3010

== ENCOUNTER → 2023-01-14 | Outpatient (CLI) | payer OTHER, MEDICAID ==
[~2023-01-14] MED LIST changes: +HYDR-3713 PO; -LOSA100T45 PO; +LOSA100T46 PO; -ceFAZolin SOD 2 GM in IV 1 EA IV ONE
== END ==
LOC: M PAIN 13:00
PROVIDERS: ATTEND Nurse Practitioner Family
DX: M54.2 Cervicalgia (principal); G89.29 Other chronic pain; M79.10 Myalgia, unspecified site; J45.909 Unspecified asthma, uncomplicated; I10 Essential (primary) hypertension; G43.909 Migraine, unspecified, not intractable, without status migrainosus; K21.9 Gastro-esophageal reflux disease without esophagitis; Z86.73 Personal history of transient ischemic attack (TIA), and cerebral infarction without residual deficits; Z88.3 Allergy status to other anti-infective agents; Z88.5 Allergy status to narcotic agent; Z88.6 Allergy status to analgesic agent; Z88.8 Allergy status to other drugs, medicaments and biological substances; E66.01 Morbid (severe) obesity due to excess calories; Z68.42 Body mass index [BMI] 45.0-49.9, adult; Z79.51 Long term (current) use of inhaled steroids; Z79.82 Long term (current) use of aspirin; Z79.899 Other long term (current) drug therapy

== ENCOUNTER → 2023-03-15 | Outpatient (CLI) | payer OTHER, MEDICAID ==
[2023-03-15 16:39] LABS: BASO % 0.3 % (0.0-1.0); EOS % 0.3 % (0.0-3.0); HEMATOCRIT 40.2 % (36.0-47.0); HEMOGLOBIN 12.5 g/dl (12.0-15.5); LYMPH # 1.8 10^3/uL (1.5-5.0); LYMPH % 45.3 % (24.0-44.0); MEAN CORPUSCULAR HEMOGLOBIN 28.6 pg (27.0-33.0); MEAN CORPUSCULAR HGB CONC 31.1 g/dl (32.0-36.5); MONO # 0.7 10^3/uL (0.0-0.8); MONO % 17.3 % (2.0-8.0); NEUTROPHILS # 1.4 10^3/uL (1.5-8.5); PLATELET COUNT, AUTOMATED 100 10^3/uL (150-450); RED BLOOD COUNT 4.37 10^6/uL (4.00-5.40); WHITE BLOOD COUNT 3.9 10^3/uL (4.0-10.0)
[2023-03-15 17:57] LABS: ALBUMIN 3.9 G/DL (3.2-5.2); ALKALINE PHOSPHATASE 84 U/L (46-116); ALT/SGPT 13 U/L (7.0-40); AST/SGOT 10 U/L (<34); BILIRUBIN,DIRECT 0.1 MG/DL (<0.4); BILIRUBIN,TOTAL 0.4 MG/DL (0.3-1.2); BLOOD UREA NITROGEN 18 MG/DL (9-23); CALCIUM LEVEL 10.1 MG/DL (8.3-10.6); CARBON DIOXIDE LEVEL 30 MMOL/L (20-31); CHLORIDE LEVEL 103 MMOL/L (98-107); CREATININE FOR GFR 0.76 MG/DL (0.55-1.30); GLOMERULAR FILTRATION RATE > 60.0 (>39); GLUCOSE, FASTING 98 MG/DL (74-106); PHOSPHORUS LEVEL 3.2 MG/DL (2.4-5.1); POTASSIUM SERUM 4.8 MMOL/L (3.5-5.1); SODIUM LEVEL 140 MMOL/L (136-145)
[2023-03-15 18:15] LABS: HEPATITIS B SURFACE ANTIGEN NEGATIVE (NEGATIVE)
[2023-03-15 18:29] LABS: HIV 1&2 SCREEN NEGATIVE (NEGATIVE)
[2023-03-15 18:36] LABS: HEPATITIS B CORE ANTIBODY IGM NEGATIVE (NEGATIVE); HEPATITIS C VIRUS ABY INDEX 0.08 INDEX (<0.8)
== END ==
LOC: M PLALAB 12:38
PROVIDERS: ATTEND Nurse Practitioner Family
DX: L40.0 Psoriasis vulgaris (principal)

== ENCOUNTER → 2023-03-29 | Outpatient (CLI) | payer OTHER, MEDICAID | LOC: M PAIN 10:45 | PROVIDERS: ATTEND Nurse Practitioner Family | DX: M79.12 Myalgia of auxiliary muscles, head and neck (principal); N32.81 Overactive bladder; E78.5 Hyperlipidemia, unspecified; L40.9 Psoriasis, unspecified; J45.909 Unspecified asthma, uncomplicated; I10 Essential (primary) hypertension; G43.909 Migraine, unspecified, not intractable, without status migrainosus; K21.9 Gastro-esophageal reflux disease without esophagitis; D69.6 Thrombocytopenia, unspecified; Z87.891 Personal history of nicotine dependence; Z79.82 Long term (current) use of aspirin; Z79.899 Other long term (current) drug therapy; Z88.5 Allergy status to narcotic agent; Z88.6 Allergy status to analgesic agent; Z88.8 Allergy status to other drugs, medicaments and biological substances ==

== ENCOUNTER → 2023-06-10 | Outpatient (CLI) | payer OTHER, MEDICAID | LOC: M RAD 18:20 | PROVIDERS: ATTEND Family Medicine | DX: M79.602 Pain in left arm (principal); M25.512 Pain in left shoulder ==

== ENCOUNTER → 2024-02-27 | Outpatient (CLI) | payer OTHER, MEDICAID | LOC: M PLALAB 12:15 | PROVIDERS: ATTEND Nurse Practitioner Family | DX: L40.0 Psoriasis vulgaris (principal); Z51.81 Encounter for therapeutic drug level monitoring; Z79.899 Other long term (current) drug therapy ==

== ENCOUNTER → 2024-04-08 | Outpatient (CLI) | payer OTHER, MEDICAID ==
[2024-04-08 15:13] LABS: BASO % 0.5 % (0.0-1.0); EOS # 0.1 10^3/uL (0.0-0.5); EOS % 1.4 % (0.0-3.0); HEMATOCRIT 41.1 % (36.0-47.0); HEMOGLOBIN 13.3 g/dl (12.0-15.5); LYMPH % 46.6 % (24.0-44.0); MEAN CORPUSCULAR HEMOGLOBIN 28.3 pg (27.0-33.0); MEAN CORPUSCULAR HGB CONC 32.4 g/dl (32.0-36.5); MEAN CORPUSCULAR VOLUME 87.4 fl (80.0-96.0); MONO # 0.7 10^3/uL (0.0-0.8); MONO % 16.3 % (2.0-8.0); NEUTROPHILS # 1.5 10^3/uL (1.5-8.5); NEUTROPHILS % 34.3 % (36.0-66.0); PLATELET COUNT, AUTOMATED 122 10^3/uL (150-450); WHITE BLOOD COUNT 4.2 10^3/uL (4.0-10.0)
[2024-04-08 15:49] LABS: ALBUMIN 3.7 G/DL (3.2-5.2); ALKALINE PHOSPHATASE 94 U/L (46-116); ALT/SGPT 12 U/L (7.0-40); AST/SGOT 11 U/L (<34); BILIRUBIN,TOTAL 0.3 MG/DL (0.3-1.2); BLOOD UREA NITROGEN 15 MG/DL (9-23); CALCIUM LEVEL 9.4 MG/DL (8.3-10.6); CARBON DIOXIDE LEVEL 29 MMOL/L (20-31); CHLORIDE LEVEL 108 MMOL/L (98-107); CREATININE FOR GFR 0.79 MG/DL (0.55-1.30); GLOMERULAR FILTRATION RATE > 60.0 (>39); GLUCOSE, FASTING 85 MG/DL (74-106); POTASSIUM SERUM 4.5 MMOL/L (3.5-5.1); SODIUM LEVEL 143 MMOL/L (136-145); TOTAL PROTEIN 7.2 G/DL (5.7-8.2)
[2024-04-08 15:51] LABS: FREE T4 1.08 NG/DL (0.89-1.76); THYROID STIMULATING HORMONE 1.741 uIU/ML (0.55-4.78)
[2024-04-08 15:59] LABS: HEMOGLOBIN A1c 5.5 % (4.0-6.0)
== END ==
LOC: M PLALAB 12:30
PROVIDERS: ATTEND Family Medicine
DX: Z00.00 Encounter for general adult medical examination without abnormal findings (principal); Z79.899 Other long term (current) drug therapy

== ENCOUNTER → 2024-04-29 | Outpatient (CLI) | payer OTHER, MEDICAID | LOC: M WHC 14:02 | PROVIDERS: ATTEND Family Medicine | DX: Z12.31 Encounter for screening mammogram for malignant neoplasm of breast (principal) ==

== ENCOUNTER 2024-09-28 12:37 | Emergency (ER) | payer OTHER, MEDICAID ==
[~2024-09-28] VITALS: Ht 147.3 cm; Wt 95.9 kg
[~2024-09-28 12:37] MED LIST changes: +ZOLO25TA PO
[2024-09-28 14:18] LABS: BASO % 0.1 % (0.0-1.0); EOS # 0.2 10^3/uL (0.0-0.5); EOS % 2.3 % (0.0-3.0); HEMATOCRIT 41.6 % (36.0-47.0); HEMOGLOBIN 13.7 g/dl (12.0-15.5); LYMPH # 1.8 10^3/uL (1.5-5.0); LYMPH % 23.8 % (24.0-44.0); MEAN CORPUSCULAR HGB CONC 32.9 g/dl (32.0-36.5); MEAN CORPUSCULAR VOLUME 85.1 fl (80.0-96.0); MONO # 1.8 10^3/uL (0.0-0.8); MONO % 23.7 % (2.0-8.0); NEUTROPHILS # 3.7 10^3/uL (1.5-8.5); NEUTROPHILS % 49.7 % (36.0-66.0); PLATELET COUNT, AUTOMATED 120 10^3/uL (150-450); RED BLOOD COUNT 4.89 10^6/uL (4.00-5.40); WHITE BLOOD COUNT 7.4 10^3/uL (4.0-10.0)
[2024-09-28 14:26] LABS: ERYTHROCYTE SEDIMENTATION RATE 64 mm/hr (0-30)
[2024-09-28 14:39] LABS: BLOOD UREA NITROGEN 13 MG/DL (9-23); C REACTIVE PROTEIN QUANTITATIV 6.21 MG/DL (<1.0); CALCIUM LEVEL 9.5 MG/DL (8.3-10.6); CARBON DIOXIDE LEVEL 30 MMOL/L (20-31); CHLORIDE LEVEL 102 MMOL/L (98-107); CREATININE FOR GFR 0.76 MG/DL (0.55-1.30); GLOMERULAR FILTRATION RATE > 60.0 (>39); GLUCOSE, FASTING 113 MG/DL (74-106); POTASSIUM SERUM 4.5 MMOL/L (3.5-5.1); SODIUM LEVEL 140 MMOL/L (136-145)
[2024-09-28 14:43] LABS: URIC ACID 4.4 MG/DL (3.1-7.8)
[2024-09-28 15:00] VITALS: BP 145/67; TEMP 99.4; O2SAT 99
[2024-09-28] MEDS ORDERED: PRED20TA PO (15:29)
== END 2024-09-28 15:44 | disposition home or self-care (01) ==
LOC: M ED 12:37
DX: M25.571 Pain in right ankle and joints of right foot (principal); M10.071 Idiopathic gout, right ankle and foot; I10 Essential (primary) hypertension; K21.9 Gastro-esophageal reflux disease without esophagitis; Z86.79 Personal history of other diseases of the circulatory system; Z88.5 Allergy status to narcotic agent; Z88.8 Allergy status to other drugs, medicaments and biological substances; Z91.048 Other nonmedicinal substance allergy status; Z79.52 Long term (current) use of systemic steroids; Z79.83 Long term (current) use of bisphosphonates; Z79.899 Other long term (current) drug therapy

== ENCOUNTER → 2024-10-07 | Outpatient (REF) | payer OTHER, MEDICAID ==
[~2024-10-07] MED LIST changes: +PRED20TA PO
[2024-10-07 17:37] LABS: URIC ACID 4.5 MG/DL (3.1-7.8)
[2024-10-07 17:40] LABS: C REACTIVE PROTEIN QUANTITATIV 0.99 MG/DL (<1.0)
[2024-10-07 17:56] LABS: RHEUMATOID FACTOR QUANT < 3.5 IU/ML (<14)
== END ==
LOC: M LAB REF 16:27
PROVIDERS: ATTEND Nurse Practitioner Family
DX: M25.50 Pain in unspecified joint (principal)

== ENCOUNTER → 2024-12-25 | Outpatient (CLI) | payer OTHER, MEDICAID ==
[~2024-12-25] MED LIST changes: +[UNRECOGNIZED DRUG - CODE]
[2024-12-25 15:33] LABS: BASO % 0.1 % (0.0-1.0); EOS % 0.3 % (0.0-3.0); HEMATOCRIT 43.7 % (36.0-47.0); HEMOGLOBIN 13.6 g/dl (12.0-15.5); LYMPH # 1.7 10^3/uL (1.5-5.0); LYMPH % 24.1 % (24.0-44.0); MEAN CORPUSCULAR HEMOGLOBIN 27.6 pg (27.0-33.0); MEAN CORPUSCULAR HGB CONC 31.1 g/dl (32.0-36.5); MEAN CORPUSCULAR VOLUME 88.8 fl (80.0-96.0); MONO # 1.1 10^3/uL (0.0-0.8); MONO % 15.5 % (2.0-8.0); NEUTROPHILS # 4.2 10^3/uL (1.5-8.5); NEUTROPHILS % 58.6 % (36.0-66.0); PLATELET COUNT, AUTOMATED 120 10^3/uL (150-450); RED BLOOD COUNT 4.92 10^6/uL (4.00-5.40); WHITE BLOOD COUNT 7.1 10^3/uL (4.0-10.0)
[2024-12-25 16:03] LABS: ALBUMIN 3.9 G/DL (3.2-5.2); ALKALINE PHOSPHATASE 84 U/L (35-104); ALT/SGPT 20 U/L (7.0-40); AST/SGOT 15 U/L (<34); BILIRUBIN,DIRECT 0.1 MG/DL (<0.4); BILIRUBIN,TOTAL 0.3 MG/DL (0.3-1.2); BLOOD UREA NITROGEN 18 MG/DL (9-23); CALCIUM LEVEL 9.4 MG/DL (8.3-10.6); CARBON DIOXIDE LEVEL 29 MMOL/L (20-31); CHLORIDE LEVEL 103 MMOL/L (98-107); CREATININE FOR GFR 0.76 MG/DL (0.55-1.30); GLOMERULAR FILTRATION RATE 82.2 (>39); GLUCOSE, FASTING 99 MG/DL (74-106); POTASSIUM SERUM 4.1 MMOL/L (3.5-5.1); SODIUM LEVEL 143 MMOL/L (136-145); TOTAL PROTEIN 7.4 G/DL (5.7-8.2)
[2024-12-25 16:05] LABS: HEPATITIS B SURFACE ANTIBODY POSITIVE (POSITIVE)
[2024-12-25 16:28] LABS: HIV 1&2 SCREEN NEGATIVE (NEGATIVE)
[2024-12-25 16:36] LABS: HEPATITIS C VIRUS ABY INDEX 0.03 INDEX (<0.8)
== END ==
LOC: M PLALAB 12-24 14:43
PROVIDERS: ATTEND Nurse Practitioner Family
DX: L40.0 Psoriasis vulgaris (principal); Z79.899 Other long term (current) drug therapy; Z51.81 Encounter for therapeutic drug level monitoring

== ENCOUNTER 2025-04-20 12:43 | Emergency (ER) | payer OTHER, MEDICAID ==
[~2025-04-20] VITALS: Ht 152.4 cm; Wt 96.4 kg
[~2025-04-20 12:43] MED LIST changes: +TURM1CAP7 PO; -TURM500C3 PO
[2025-04-20 14:39] LABS: BASO # 0.0 10^3/uL (0.0-0.2); BASO % 0.2 % (0.0-1.0); EOS # 0.0 10^3/uL (0.0-0.5); EOS % 0.2 % (0.0-3.0); LYMPH # 1.7 10^3/uL (1.5-5.0); LYMPH % 18.9 % (24.0-44.0); MONO # 1.2 10^3/uL (0.0-0.8); MONO % 13.3 % (2.0-8.0); NEUTROPHILS # 5.8 10^3/uL (1.5-8.5); NEUTROPHILS % 65.9 % (36.0-66.0)
[2025-04-20 15:00] LABS: CK-MB VALUE MASS 2.4 NG/ML (<3.6)
[2025-04-20 15:02] LABS: ALT/SGPT 17.0 U/L (7.0-40); AST/SGOT 19.0 U/L (<34); CALCIUM LEVEL 8.9 MG/DL (8.3-10.6); CARBON DIOXIDE LEVEL 28.0 MMOL/L (20-31); CHLORIDE LEVEL 105.0 MMOL/L (98-107); CPK CREATINE PHOSPHOKINASE 68.0 U/L (34-145); CREATININE FOR GFR 0.76 MG/DL (0.55-1.30); GLOMERULAR FILTRATION RATE 81.7 (>39); MAGNESIUM LEVEL 2.3 MG/DL (1.8-2.4); MB/CK RELATIVE INDEX 3.52 (< OR =4); POTASSIUM SERUM 3.8 MMOL/L (3.5-5.1); SODIUM LEVEL 146.0 MMOL/L (136-145)
[2025-04-20 15:22] LABS: PLATELET COUNT, AUTOMATED 95 10^3/uL (150-450)
[2025-04-20] MEDS ORDERED: XARE15TA PO (15:24)
[2025-04-20] MEDS: RIVAROXABAN 15MG TAB PO ONE (15:34)
[2025-04-20 15:55] VITALS: BP 170/79; TEMP 98.1; O2SAT 97
== END 2025-04-20 16:05 | disposition home or self-care (01) ==
LOC: M ED 13:50
DX: I82.432 Acute embolism and thrombosis of left popliteal vein (principal); M71.22 Synovial cyst of popliteal space [Baker], left knee; I10 Essential (primary) hypertension; E78.5 Hyperlipidemia, unspecified; F32.A Depression, unspecified; K21.9 Gastro-esophageal reflux disease without esophagitis; Z88.5 Allergy status to narcotic agent; Z88.8 Allergy status to other drugs, medicaments and biological substances; Z79.1 Long term (current) use of non-steroidal anti-inflammatories (NSAID); Z79.52 Long term (current) use of systemic steroids; Z79.899 Other long term (current) drug therapy

== ENCOUNTER → 2025-04-22 | Outpatient (CLI) | payer OTHER, MEDICAID ==
[~2025-04-22] MED LIST changes: +XARE15TA PO
[2025-04-22 14:15] LABS: BASO # 0.0 10^3/uL (0.0-0.2); BASO % 0.1 % (0.0-1.0); EOS # 0.0 10^3/uL (0.0-0.5); EOS % 0.1 % (0.0-3.0); LYMPH # 2.0 10^3/uL (1.5-5.0); LYMPH % 25.1 % (24.0-44.0); MONO # 0.8 10^3/uL (0.0-0.8); MONO % 10.5 % (2.0-8.0); NEUTROPHILS # 5.0 10^3/uL (1.5-8.5); NEUTROPHILS % 62.9 % (36.0-66.0); PLATELET COUNT, AUTOMATED 102 10^3/uL (150-450)
[2025-04-22 14:22] LABS: ERYTHROCYTE SEDIMENTATION RATE 45 mm/hr (0-30)
[2025-04-22 14:39] LABS: ALT/SGPT 18 U/L (7.0-40); AST/SGOT 24 U/L (<34); CALCIUM LEVEL 8.9 MG/DL (8.3-10.6); CARBON DIOXIDE LEVEL 20 MMOL/L (20-31); CHLORIDE LEVEL 104 MMOL/L (98-107); CREATININE FOR GFR 0.70 MG/DL (0.55-1.30); GLOMERULAR FILTRATION RATE > 90.0 (>39); POTASSIUM SERUM 3.6 MMOL/L (3.5-5.1); SODIUM LEVEL 141 MMOL/L (136-145)
== END ==
LOC: M PLALAB 10:26
PROVIDERS: ATTEND Nurse Practitioner Family
DX: I10 Essential (primary) hypertension (principal); E78.00 Pure hypercholesterolemia, unspecified; R35.0 Frequency of micturition

== ENCOUNTER → 2025-06-09 | Outpatient (REF) | payer OTHER, MEDICAID | LOC: M PLALAB 10:27 | PROVIDERS: ATTEND Nurse Practitioner Family | DX: N39.0 Urinary tract infection, site not specified (principal) ==

== ENCOUNTER → 2025-06-14 | Outpatient (CLI) | payer OTHER, MEDICAID ==
[2025-06-14 13:31] LABS: BASO # 0.0 10^3/uL (0.0-0.2); BASO % 0.3 % (0.0-1.0); EOS # 0.0 10^3/uL (0.0-0.5); EOS % 0.1 % (0.0-3.0); LYMPH # 1.3 10^3/uL (1.5-5.0); LYMPH % 17.4 % (24.0-44.0); MONO # 0.8 10^3/uL (0.0-0.8); MONO % 10.6 % (2.0-8.0); NEUTROPHILS # 5.4 10^3/uL (1.5-8.5); NEUTROPHILS % 70.6 % (36.0-66.0); PLATELET COUNT, AUTOMATED 134 10^3/uL (150-450)
[2025-06-14 13:40] LABS: ERYTHROCYTE SEDIMENTATION RATE 77 mm/hr (0-30)
[2025-06-14 13:51] LABS: CALCIUM LEVEL 10.0 MG/DL (8.3-10.6); CARBON DIOXIDE LEVEL 25.0 MMOL/L (20-31); CHLORIDE LEVEL 101.0 MMOL/L (98-107); CHOLESTEROL LEVEL 197.0 MG/DL (<200); CHOLESTEROL RISK RATIO 3.12 (<5); CREATININE FOR GFR 0.79 MG/DL (0.55-1.30); GLOMERULAR FILTRATION RATE 78.0 (>39); LDL CHOLESTEROL 86.7 MG/DL (<100); NON-HDL-C 133.9 MG/DL; POTASSIUM SERUM 4.0 MMOL/L (3.5-5.1); SODIUM LEVEL 142.0 MMOL/L (136-145); TRIGLYCERIDES LEVEL 236.0 MG/DL (<150)
== END ==
LOC: M PLALAB 10:56
PROVIDERS: ATTEND Internal Medicine
DX: I10 Essential (primary) hypertension (principal); M10.9 Gout, unspecified; M35.3 Polymyalgia rheumatica; E78.00 Pure hypercholesterolemia, unspecified

== ENCOUNTER → 2025-07-14 | Outpatient (REF) | payer OTHER, MEDICAID ==
[~2025-07-14] MED LIST changes: +PRED5TA; +[UNRECOGNIZED DRUG - CODE]
== END ==
LOC: M SFHCWAGY 13:06
PROVIDERS: ATTEND Nurse Practitioner Family
DX: R39.15 Urgency of urination (principal)

== ENCOUNTER → 2025-07-14 | Outpatient (CLI) | payer OTHER, MEDICAID | LOC: M PLAIMG 09:59 | PROVIDERS: ATTEND Physician Assistant | DX: R06.02 Shortness of breath (principal); Z87.891 Personal history of nicotine dependence; R91.1 Solitary pulmonary nodule; R39.15 Urgency of urination ==

== ENCOUNTER → 2025-07-27 | Outpatient (CLI) | payer OTHER, MEDICAID ==
[~2025-07-27] MED LIST changes: +METHACHOLINE KIT (6 VIAL.NEB PREMIX) INH ONE
== END ==
LOC: M CARPUL 11:02
PROVIDERS: ATTEND Physician Assistant
DX: R06.02 Shortness of breath (principal)
CPT/HCPCS: 94070; 95070; J7674